=== PATIENT | female | born 1960 | race Two or more races ===

== ENCOUNTER 2020-08-07 13:45 | Outpatient (REF) | payer MEDICAID, OTHER, SELFPAY ==
[2020-08-07 15:44] LABS: Free T4 (Free Thyroxine) 0.74 ng/dL (0.71-1.85); Thyroid Stimulating Hormone 1.15 uIU/mL (0.32-4.0); Vitamin D 25-OH Total 37.8 ng/mL (>30)
[2020-08-08 07:12] LABS: Thyroglobulin Antibodies <1 IU/mL (< or = 1); Thyroid Peroxidase Antibodies 4 IU/mL (<9)
== END 2020-08-07 13:46 | disposition home or self-care (01) ==
LOC: HO.LAB 13:45
PROVIDERS: PCP Student in an Organized Health Care Education/Training Program; Visit Provider Internal Medicine Endocrinology, Diabetes & Metabolism
DX: E05.10 Thyrotoxicosis with toxic single thyroid nodule without thyrotoxic crisis or storm (principal); E55.9 Vitamin D deficiency, unspecified; E06.3 Autoimmune thyroiditis; Z79.899 Other long term (current) drug therapy
CPT/HCPCS: 36415; 82306; 84439; 84443; 86376; 86800; 99212

== ENCOUNTER 2020-09-04 09:35 | Outpatient (REF) | payer MEDICAID, OTHER, SELFPAY ==
--- NOTE | ~2020-09-04 | US_ITS ---
EXAMINATION: US THYROID CLINICAL INFORMATION: Thyrotoxicosis with toxic single thyroid nodule. COMPARISON: Ultrasound soft tissue head/neck thyroid dated 09/19/2017 and 09/06/2016 TECHNIQUE: Linear transducer fowler-scale and color Doppler examination with attention to the region of the thyroid. FINDINGS: SIZE: Measurements of the thyroid lobes and nodules are given in sagittal, anteroposterior and transverse dimensions respectively. Right Thyroid Lobe: 3.2 x 0.9 x 0.7 cm, volume 1.1 mL. Previously 3.5 x 1.0 x 0.8 cm, volume 1.7 mL. Parenchyma: The gland echotexture is heterogeneous. Thyroid vascularity is normal. Left Thyroid Lobe: 6.2 x 3.6 x 3.6 cm, volume 42.0 mL. Previously 4.6 x 3.8 x 3.7 cm, volume 34.0 mL. Parenchyma: The gland echotexture is heterogeneous. Thyroid vascularity is normal. Isthmus: 0.2 cm in maximum AP dimension. Previously 0.3 cm. Estimated total number of nodules greater than or equal to 1 cm: 1. [employer] Head nodules are described as follows: 1. Location: Left mid. Size: 3.5 x 3.1 x 3.3 cm, volume 18.7 mL. Previously: 3.3 x 2.8 x 3.5 cm, volume 16.9 mL. Nodule characteristics: Composition: Solid/almost completely solid (2). Echogenicity: Hyperechoic (1). Shape: Not taller than wide (0). Margins: Smooth (0). Echogenic Foci: Macrocalcifications (1). Punctate echogenic foci (3). ACR TI-RADS total points: 7 ACR TI-RADS category: 5 Significant change in size (>/= 20% in 2 dimensions and minimal increase of 2 mm or 50% or greater increase in volume): None. Change in features: None available. Change in ACR TI-RADS risk category: None available. NODES: No lymphadenopathy is seen in the tissue surrounding the thyroid gland. US/US thyroid IMPRESSION: Solitary nodule left thyroid lobe midpole. No additional nodules seen. ACR TI-RADS RECOMMENDATION REFERENCE: Ultrasound-guided fine-needle aspiration, followup ultrasound, no further followup. * TR1 (0 point) and TR 2 (2 points): No FNA or followup. * TR3 (3 points): FNA if more than or equal to 2.5 cm in maximum dimension, followup ultrasound in 1, 3 and 5 years if 1.5 to 2.4 cm in maximum dimension. * TR4 (4-6 points): FNA if more than or equal to 1.5 cm in maximum dimension, followup ultrasound in 1, 2, 3 and 5 years if 1 to 1.4 cm in maximum dimension. * TR5 (more than or equal to 7 points): FNA if more than or equal to 1 cm in maximum dimension, followup ultrasound every year for 5 years if 0.5 to 0.9 cm in maximum dimension. * TR3, TR4 or TR5 nodules that are below the size threshold for followup receive no followup.
== END 2020-09-04 09:36 | disposition home or self-care (01) ==
LOC: HO.US 09:35
PROVIDERS: Visit Provider Internal Medicine Endocrinology, Diabetes & Metabolism
DX: E05.10 Thyrotoxicosis with toxic single thyroid nodule without thyrotoxic crisis or storm (principal)
CPT/HCPCS: 76536

== ENCOUNTER 2021-08-11 14:26 | Outpatient (REF) | payer MEDICAID, OTHER, SELFPAY ==
[2021-08-11 16:19] LABS: Thyroid Stimulating Hormone 0.83 uIU/mL (0.32-4.0)
== END 2021-08-11 14:27 | disposition home or self-care (01) ==
LOC: HO.LAB 14:26
PROVIDERS: PCP Student in an Organized Health Care Education/Training Program; Visit Provider Internal Medicine Endocrinology, Diabetes & Metabolism
DX: E05.10 Thyrotoxicosis with toxic single thyroid nodule without thyrotoxic crisis or storm (principal)
CPT/HCPCS: 36415; 84439; 84443; 99212

== ENCOUNTER 2021-08-19 11:01 | Outpatient (REF) | payer MEDICAID, OTHER, SELFPAY ==
--- NOTE | ~2021-08-19 | US_ITS ---
EXAMINATION: ULTRASOUND-GUIDED FINE-NEEDLE ASPIRATION THYROID CLINICAL INFORMATION: Thyroid toxicosis with toxic single thyroid nodule COMPARISON: Previous thyroid ultrasound most recent September 2020 TECHNIQUE: Procedure and risks and benefits including bleeding and infection were discussed with the patient and her daughter and informed consent was obtained. The left neck was prepped and draped in the usual sterile fashion. The skin and soft tissues were anesthetized with 1% lidocaine plain. Using ultrasound guidance and a 25-gauge needle, access to the nodule in the left mid thyroid gland was obtained. A total of 4 25-gauge FNA specimens were obtained. There was no complication. FINDINGS: There is a 2.7 x 2.1 x 3.2 cm heterogeneous nodule with small calcifications in the mid left lobe that was targeted for fine-needle aspiration. US/US guided fine needle asp IMPRESSION: Ultrasound-guided left thyroid nodule fine-needle aspiration.
[2021-08-19] MEDS: Lidocaine HCl 1 % MPF 5 ML VIAL SUBCUT (12:03)
== END 2021-08-19 11:02 | disposition home or self-care (01) ==
LOC: HO.US 11:01
PROVIDERS: PCP Student in an Organized Health Care Education/Training Program; Visit Provider Internal Medicine Endocrinology, Diabetes & Metabolism
DX: E05.10 Thyrotoxicosis with toxic single thyroid nodule without thyrotoxic crisis or storm (principal)
CPT/HCPCS: 10005; 88172; 88173; 88177; 88305

== ENCOUNTER 2021-09-24 07:43 | Outpatient (REF) | payer MEDICAID, OTHER, SELFPAY ==
--- NOTE | 2021-09-24 08:23 | PM.OP ---
Brief Operative Note Date of Service: 09/24/21 Pre-op diagnosis: Multinodular Thyroid Procedure: This is doctor Yusra Alarcon. This is an ultrasound-guided fine-needle aspiration report. Date of Examination: Indication: Multinodular Thyroid Porcedure: Procedure was explained to the patient. Alternatives, the risk and benefits were discussed. Written consent was obtained. A time-out was also obtained. After sterile preparation, fine-needle aspiration of a left mid pole 3.5 cm thyroid nodule was performed using direct ultrasound guidance to confirm accurate needle placement. Four aspirations were made using 25 gauge needles. Samples were submitted for cytology. One pass was dedicated for [employer] sequencing injector assembler testing. The patient tolerated the procedure well. Aftercare instructions were provided. Impression: Uncomplicated fine needle aspiration biopsy of a left mid pole 3.5 cm thyroid nodule under ultrasound guidance. Surgeon: Yusra Alarcon, DO Was an Production Superintendent [employer] used for this Procedure?: No Estimated blood loss (mL): 0
[2021-09-24] MEDS: Lidocaine HCl 1 % MPF 5 ML VIAL SUBCUT (09:16)
== END 2021-09-24 07:44 | disposition home or self-care (01) ==
LOC: HO.US 07:43
PROVIDERS: Visit Provider Internal Medicine Endocrinology, Diabetes & Metabolism
DX: E04.2 Nontoxic multinodular goiter (principal)
CPT/HCPCS: 10005; 88172; 88173; 88177

== ENCOUNTER 2021-10-08 12:50 | Outpatient (REF) | payer MEDICAID, OTHER, SELFPAY ==
[2021-10-08 14:29] LABS: Alanine Aminotransferase 19 U/L (0-31); Albumin Level 4.6 g/dL (3.5-5.0); Alkaline Phosphatase 65 U/L (39-117); Anion Gap 16 (12-20); Aspartate Amino Transferase 21 U/L (5-31); Bilirubin Total 0.9 mg/dL (0.0-1.0); Blood Urea Nitrogen 9 mg/dL (9-16); Calcium 9.7 mg/dL (8.4-10.2); Carbon Dioxide 29 mmol/L (22-29); Chloride 101 mmol/L (96-108); Estimated Glomerular Filt Rate > 60; Glucose Random 80 mg/dL (60-115); Phosphorus 3.8 mg/dL (2.7-4.5); Potassium 4.6 mmol/L (3.3-5.1); Sodium 141 mmol/L (135-145); Total Protein 7.8 g/dL (6.5-8.0)
[2021-10-08 14:51] LABS: Free T4 (Free Thyroxine) 0.82 ng/dL (0.71-1.85); Thyroid Stimulating Hormone 1.29 uIU/mL (0.32-4.0); Vitamin D 25-OH Total 34.3 ng/mL (>30)
[2021-10-12 17:32] LABS: Calcium (PTHI) 9.9 mg/dL (8.6-10.4); PTHI 70 pg/mL (16-77)
== END 2021-10-08 12:51 | disposition home or self-care (01) ==
LOC: HO.LAB 12:50
PROVIDERS: Visit Provider Internal Medicine
DX: E04.2 Nontoxic multinodular goiter (principal); E55.9 Vitamin D deficiency, unspecified
CPT/HCPCS: 36415; 80053; 82306; 83970; 84100; 84439; 84443; 99212

== ENCOUNTER → 2022-02-10 12:24 | Outpatient (BNVA) | payer MEDICAID, OTHER, SELFPAY | PROVIDERS: PCP Student in an Organized Health Care Education/Training Program; Visit Provider Internal Medicine Endocrinology, Diabetes & Metabolism | DX: E05.10 Thyrotoxicosis with toxic single thyroid nodule without thyrotoxic crisis or storm (principal) | CPT/HCPCS: 99212 ==

== ENCOUNTER 2023-02-07 12:02 | Outpatient (REF) | payer OTHER, SELFPAY ==
[2023-02-07 13:27] LABS: Free T4 (Free Thyroxine) 0.77 ng/dL (0.71-1.85); Thyroid Stimulating Hormone 1.05 uIU/mL (0.32-4.0)
== END 2023-02-07 12:03 | disposition home or self-care (01) ==
LOC: HO.LAB 12:02
PROVIDERS: Visit Provider Internal Medicine Endocrinology, Diabetes & Metabolism
DX: E04.2 Nontoxic multinodular goiter (principal)
CPT/HCPCS: 36415; 84439; 84443

== ENCOUNTER 2023-02-09 12:52 | Outpatient (AMB) | payer SELFPAY ==
--- NOTE | 2023-02-09 13:01 | A.OFFVIS_ITS ---
Intake Vital Signs 02/09/23 13:02 Height 5 ft 5 in Weight 217 lb 6.012 oz BMI 36.2 BP 142/86 H Blood Pressure Location Lt brachial Position Sitting Pulse 76 Pulse Source Pulse Oximeter Intake Visit Reasons: f/u thyroid nodule Intake Note: Patient present for Thyroid Nodule follow up visit. Nurse Practitioner Per Diem Required: Yes Nurse Practitioner Per Diem Language: Hebrew Information Interpreted: non-clinical & clinical Accompanied by: Self / Same As Patient Allergies No Known Allergies Allergy (Verified 02/09/23 13:07) HPI HPI Comments History of Present Illness Details 62 -year-old female, she was last seen on 08/07/2020 for toxic nodule, Elpidio's disease She is feeling well. She reports she has been gaining weight. She has increased anxiety after her had a hemorrhagic stroke. Patient had a toxic nodule in left side size 4.1 cm She was treated with 19.86 mCi of I 131 on 11/25/16. The size decreased after FOURNIER ablation. She has low titer positive TPO antibody. She also has obesity, vitamin-D deficiency, history of prediabetes. Denies heat intolerance, stable weight, denies diarrhea, positive cons tipation, denies insomnia, fatigue, no sweating, denies dysphagia, resolved dyspnea, improved dysphonia, denies tremors, resolved palpitations, Denies irritability, anxiety. Laboratory Tests 03/24/18 08/08/19 10:15 11:38 25-OH Vitamin D To ifrah 28.9 20.7 Free T4 0.93 TSH 3rd Generation 1.07 Laboratory Tests 08/08/19 08/17/19 08/17/19 11:38 08:48 08:48 25-OH Vitamin D To ifrah 20.7 Free T4 0.68 L Free T4 (Dialysis) 1.1 TSH 3rd Generation 1.16 She had a further evaluation of the left midpole lower pole nodule and it was decided not to biopsy but the sent for possible lobectomy. She saw Dr. Duke who decided with patient to observe and not operate [facility] Medical History Elpidio's disease Multinodular thyroid Toxic thyroid nodule Vitamin D deficiency Surgical History Hx of biopsy History of removal of both ovaries History of surgery Family History Mother No problems noted. Father No problems noted. Social History Household Members: Family Alcohol intake: current Alcohol intake frequency: does not drink Patient Tobacco Use Status: Former Tobacco user Quit Date: Physical Exam Vital Signs: Last Vital Signs Pulse 76 02/09/23 13:02 BP 142/86 H 02/09/23 13:02 BMI result Body Mass Index 36.2 Assessment & Plan Assessment & Plan (1) Multinodular thyroid: Code(s): E04.2 - Nontoxic multinodular goiter Plan: See below (2) Toxic thyroid nodule: Code(s): E05.10 - Thyrotoxicosis with toxic single thyroid nodule without thyrotoxic crisis or storm Plan: This is a 62-year-old female with a history of a left thyroid nodule? Hot? In nature on scan status post iodine 131 therapy. She appears to be clinically and biochemically euthyroid. She had a surgical evaluation but was decided to observe the nodule Plan is to observe the nodule. Will repeat thyroid ultrasound Orders: Orders US thyroid Today E04.2 - Nontoxic multinodular goiter Coding Level of Care Code Est Pt Level 3 (42047) Diagnoses Multinodular thyroid E04.2 Toxic thyroid nodule E05.10
[2023-02-09 13:02] VITALS: BP 142/86; PULSE 76; BMI 36.2
== END 2023-02-09 13:25 | disposition home or self-care (01) ==
PROVIDERS: PCP Student in an Organized Health Care Education/Training Program; Visit Provider Internal Medicine Endocrinology, Diabetes & Metabolism
DX: E04.2 Nontoxic multinodular goiter (principal); E05.10 Thyrotoxicosis with toxic single thyroid nodule without thyrotoxic crisis or storm
CPT/HCPCS: 99213

== ENCOUNTER → 2023-02-09 12:52 | Outpatient (BNVA) | payer MEDICAID, OTHER, SELFPAY | PROVIDERS: Visit Provider Internal Medicine Endocrinology, Diabetes & Metabolism | DX: E04.2 Nontoxic multinodular goiter (principal); E05.10 Thyrotoxicosis with toxic single thyroid nodule without thyrotoxic crisis or storm | CPT/HCPCS: 99212 ==

== ENCOUNTER 2023-10-12 13:46 | Outpatient (REF) | payer MEDICAID, OTHER, SELFPAY ==
[2023-10-12 16:02] LABS: Free T4 (Free Thyroxine) 0.79 ng/dL (0.71-1.85); Thyroid Stimulating Hormone 0.02 uIU/mL (0.32-4.0)
== END 2023-10-12 13:47 | disposition home or self-care (01) ==
LOC: HO.LAB 13:46
PROVIDERS: PCP Student in an Organized Health Care Education/Training Program; Visit Provider Internal Medicine Endocrinology, Diabetes & Metabolism
DX: E05.10 Thyrotoxicosis with toxic single thyroid nodule without thyrotoxic crisis or storm (principal)
CPT/HCPCS: 36415; 84439; 84443; 99212

== ENCOUNTER 2023-10-12 13:46 | Outpatient (AMB) | payer SELFPAY ==
--- NOTE | 2023-10-12 13:47 | A.OFFVIS_ITS ---
Vital Signs 10/12/23 13:48 Height 5 ft 5 in Weight 218 lb 0.595 oz BMI 36.3 BP 138/80 Blood Pressure Location Lt brachial Position Sitting Pulse 71 Pulse Source Pulse Oximeter Intake Visit Reasons: f/u thyroid nodule Intake Note: Patient present today for Thyroid nodule follow up visit. Technician Anatomic Pathology Required: Yes Technician Anatomic Pathology Language: Contract Agent Services: Technician Anatomic Pathology Present Technician Anatomic Pathology Name: Ricci Information Interpreted: non-clinical & clinical Accompanied by: Self / Same As Patient Allergies No Known Allergies Allergy (Verified 02/09/23 13:07) Medication List - Last Reconciled 10/12/23 by Brian Linda MD acetaminophen ER (8 Hour Pain Reliever) 650 mg PO cholecalciferol (vitamin D3) 50 mcg PO DAILY 30 days diclofenac sodium 1% topical docusate sodium 100 mg PO BID pantoprazole 20 mg PO DAILY HPI Comments Details: 62 -year-old female, she was last seen on 08/07/2020 for toxic nodule, Elpidio's disease She is feeling well. She reports she has been gaining weight. She has increased anxiety after her had a hemorrhagic stroke. Patient had a toxic nodule in left side size 4.1 cm She was treated with 19.86 mCi of I 131 on 11/25/16. The size decreased after FOURNIER ablation. She has low titer positive TPO antibody. She also has obesity, vitamin-D deficiency, history of prediabetes. Denies heat intolerance, stable weight, denies diarrhea, positive constipation, denies insomnia, fatigue, no sweating, denies dysphagia, resolved dyspnea, improved dysphonia, denies tremors, resolved palpitations, Denies irritability, anxiety. Laboratory Tests 03/24/18 08/08/19 10:15 11:38 25-OH Vitamin D Total 28.9 20.7 Free T4 0.93 TSH 3rd Generation 1.07 Laboratory Tests 08/08/19 08/17/19 08/17/19 11:38 08:48 08:48 25-OH Vitamin D Total 20.7 Free T4 0.68 L Free T4 (Dialysis) 1.1 TSH 3rd Generation 1.16 She had a further evaluation of the left midpole lower pole nodule and it was decided not to biopsy but the sent for possible lobectomy. She saw Dr. Duke who decided with patient to observe and not operate [facility] Medical History Elpidio's disease Multinodular thyroid Toxic thyroid nodule Vitamin D deficiency Surgical History Hx of biopsy History of removal of both ovaries History of surgery Family History Mother No problems noted. Father No problems noted. Social History Household Members: Family Alcohol intake: current Alcohol intake frequency: does not drink Patient Tobacco Use Status: Former Tobacco user Physical Exam Const Other: Thyroid gland is normal size weighs about 15 g. There is a left nodule palpated which is about 3 cm in diameter Assessment & Plan Assessment & Plan (1) Toxic thyroid nodule: Code(s): E05.10 - Thyrotoxicosis with toxic single thyroid nodule without thyrotoxic crisis or storm Category: Medical Plan: This is a 62-year-old female with a history of a left thyroid nodule? Hot? In nature on scan status post iodine 131 therapy. She appears to be clinically and biochemically euthyroid. She had a surgical evaluation but was decided to observe the nodule Plan is to observe the nodule. Will have patient follow up with Dr. Hernandez who starting the practice in October is expert thyroid ultrasound and will former repeat thyroid ultrasound Orders: Orders Thyroid Stimulating Hormone Today E05.10 - Thyrotoxicosis with toxic single thyroid nodule without thyrotoxic crisis or storm Free T4 (Free Thyroxine) Today E05.10 - Thyrotoxicosis with toxic single thyroid nodule without thyrotoxic crisis or storm Coding Level of Care Code Est Pt Level 3 (25387) Diagnoses Toxic thyroid nodule E05.10
[2023-10-12 13:48] VITALS: BP 138/80; PULSE 71; BMI 36.3
== END 2023-10-12 14:06 | disposition home or self-care (01) ==
PROVIDERS: PCP Student in an Organized Health Care Education/Training Program; Visit Provider Internal Medicine Endocrinology, Diabetes & Metabolism
DX: E05.10 Thyrotoxicosis with toxic single thyroid nodule without thyrotoxic crisis or storm (principal)
CPT/HCPCS: 99213

== ENCOUNTER → 2023-11-17 08:31 | Outpatient (REF) | payer MEDICAID, OTHER, SELFPAY ==
--- NOTE | ~2023-11-17 | NM_ITS ---
EXAMINATION: THYROID UPTAKE AND SCAN CLINICAL INFORMATION: Toxicosis with toxic single thyroid nodule. COMPARISON: The previous thyroid uptake and scan dated 05/22/2016 is available for comparison. Subsequent to this, the patient was treated with 19.68 mCi radioiodine I-131 for toxic multinodular goiter on 12/03/2016. TECHNIQUE: Following the oral administration of 297 microcuries of I-123 sodium iodide, thyroid uptake was performed and expressed as a percentage of the administrated dose. Gamma scintillation camera images of the thyroid in the anterior and right and left anterior oblique views were obtained using a pinhole collimator following the administration of 10 mCi Tc-99m pertechnetate. FINDINGS: The uptake is 3.2% at 4 hours and 9.1% at 24 hours (Normal radioiodine uptake at 24 hours is 10% to 30%). The radioiodine uptake is mildly depressed.. The radiopertechnetate thyroid scintigram shows an asymmetrical thyroid gland with almost all of the accumulated activity in the left lobe. The latter appears top normal in size. There is only very faint visualization of the right lobe, predominantly in the upper pole. A single anterior radioiodine image obtained at the time of the 24-hour uptake measurement is similar to the radio pertechnetate image, likely because of the patient's low radioiodine uptake, accumulation within the gland is less than normal and detail is not as well-visualized as on the radio pertechnetate image. Compared to the previous study dated 07/22/2016, the appearance is similar, but there was significantly better accumulation of activity within the gland on both the radio pertechnetate and the radioiodine images and in addition although much smaller than the left, the right lobe was much better visualized on the prior study. Radioiodine uptake is also significantly lower than on the previous study when it was 9.7% at 4 hours and 21.7% at 24 hours. NM/NM thyroid w uptake IMPRESSION: These findings are consistent with post radioiodine therapy changes following therapeutic administration of radioiodine for a autonomously functioning left thyroid nodule. This scan appearance is similar other than both the trapping function and the radioiodine uptake are significantly diminished since the 2017 study. However, significant function persists in the left lobe nodule and if TSH levels remain low, and combination with decreased activity in the contralateral right lobe, persistent hyperthyroidism may be present. Electronically signed by: Kit Llanos MD 11/22/2023 04:55 PM EDT RP
== END ==
LOC: HO.NUCMED 08:31
PROVIDERS: PCP Student in an Organized Health Care Education/Training Program; Visit Provider Internal Medicine Endocrinology, Diabetes & Metabolism
DX: E05.10 Thyrotoxicosis with toxic single thyroid nodule without thyrotoxic crisis or storm (principal)
CPT/HCPCS: 78014; A9512; A9516